=== PATIENT | female | born 1995 | race African-American/Black ===

== ENCOUNTER 2018-06-08 08:00 | Day surgery (SDC) | payer OTHER ==
[2018-06-08] MEDS ORDERED: MIDAZOLAM 1 MG/ML 2 ML INJ ×4 (10:14→10:15)
[2018-06-08] MEDS ORDERED: FENTAnyl 50 MCG/ML VIAL (10:15)
== END 2018-06-08 14:36 | disposition home or self-care (01) ==
LOC: GIL 08:00
DX: D50.0 Iron deficiency anemia secondary to blood loss (chronic) (principal); K64.8 Other hemorrhoids; K21.9 Gastro-esophageal reflux disease without esophagitis; K29.70 Gastritis, unspecified, without bleeding
CPT/HCPCS: 43239; 84703; 88305